=== PATIENT | female | born 1975 | race Caucasian/White ===

== ENCOUNTER 2016-08-24 16:53 | Emergency (ER) | payer SELFPAY ==
--- NOTE | 2016-08-24 17:24 | ER Document Report ---
ED Medical Screen (RME) - General Chief Complaint: Abdominal Pain Stated Complaint: FLANK PAIN/URINARY ISSUE TRAVEL OUTSIDE OF THE [place] IN LAST 30 DAYS: No - HPI Notes: 08/24/16 17:23 Left lower abdominal pain flank pain ongoing for a week and a half recently got over gastroenteritis. Patient now is having pain after urinating. - Related Data Allergies/Adverse Reactions: amoxicillin [Amoxicillin] Allergy (Verified 08/24/16 17:05) Penicillins Allergy (Verified 08/24/16 17:05) Past Medical History Renal/ Medical History: Denies: Hx Peritoneal Dialysis Review of Systems - Review of Systems Gastrointestinal: Abdominal pain Genitourinary: Dysuria Physical Exam - Vital signs Vitals: Temp Pulse Resp BP Pulse Ox 98.4 F 103 H 18 151/70 H 99 08/24/16 17:06 08/24/16 17:06 08/24/16 17:06 08/24/16 17:06 08/24/16 17:06 - Respiratory Respiratory status: No respiratory distress Chest status: Nontender Breath sounds: Normal Course - Re-evaluation Re-evalutation: 08/24/16 17:24 I have greeted and performed a rapid initial assessment of this patient. A comprehensive ED assessment and evaluation of the patient, analysis of test results and completion of the medical decision making process will be conducted by additional ED providers. - Vital Signs Vital signs: Temp Pulse Resp BP Pulse Ox 98.4 F 103 H 18 151/70 H 99 08/24/16 17:06 08/24/16 17:06 08/24/16 17:06 08/24/16 17:06 08/24/16 17:06
[2016-08-24 17:38] LABS: ABSOLUTE BASOPHILS # (AUTO) 0.1 10^3/uL (0.0-0.2); ABSOLUTE EOSINOPHILS # (AUTO) 0.3 10^3/uL (0.0-0.6); ABSOLUTE LYMPHOCYTES (AUTO) 3.1 10^3/uL (0.5-4.7); ABSOLUTE MONOCYTES (AUTO) 0.8 10^3/uL (0.1-1.4); ABSOLUTE NEUT (AUTO) 6.1 10^3/uL (1.7-8.2); BASOPHILS % (AUTO) 0.7 % (0-2); EOSINOPHILS % (AUTO) 3.1 % (0-6); HEMATOCRIT 34.6 % (36.0-47.0); HEMOGLOBIN 11.6 g/dL (12.0-15.5); HGB HCT DIFFERENCE 0.2; LYMPHOCYTES % (AUTO) 29.8 % (13-45); MEAN CORPUSCULAR HEMOGLOBIN 26.2 pg (27.0-33.4); MEAN CORPUSCULAR HGB CONC 33.5 g/dL (32.0-36.0); MEAN CORPUSCULAR VOLUME 78 fl (80-97); MONOCYTES % (AUTO) 7.3 % (3-13); RED BLOOD COUNT 4.42 10^6/uL (3.72-5.28); RED CELL DISTRIBUTION WIDTH 13.8 % (11.5-14.0); SEGMENTED NEUTROPHILS % (AUTO) 59.1 % (42-78); WHITE BLOOD COUNT 10.3 10^3/uL (4.0-10.5)
[2016-08-24 17:47] LABS: APPEARANCE,URINE CLEAR; BILIRUBIN,URINE NEGATIVE (NEGATIVE); GLUCOSE, URINE NEGATIVE (NEGATIVE); KETONES,URINE NEGATIVE (NEGATIVE); LEUKOCYTE ESTERASE,URINE NEGATIVE (NEGATIVE); NITRITE,URINE NEGATIVE (NEGATIVE); PROTEIN,URINE NEGATIVE (NEGATIVE); URINE SPECIFIC GRAVITY 1.016; UROBILINOGEN,URINE NEGATIVE mg/dL (<2.0)
[2016-08-24 17:57] LABS: ALANINE AMINOTRANSFERASE 27 U/L (9-52); ALKALINE PHOSPHATASE 65 U/L (38-126); ANION GAP 12 (5-19); ASPARTATE AMINO TRANSFERASE 18 U/L (14-36); BILIRUBIN,DIRECT 0.2 mg/dL (0.0-0.4); BILIRUBIN,TOTAL 0.3 mg/dL (0.2-1.3); BLOOD UREA NITROGEN 15 mg/dL (7-20); CALCIUM 9.8 mg/dL (8.4-10.2); CARBON DIOXIDE 25 mmol/L (22-30); CHLORIDE 104 mmol/L (98-107); CREATININE RESULT 0.59 mg/dL (0.52-1.25); GLUCOSE 111 mg/dL (75-110); LIPASE 58.9 U/L (23-300); POTASSIUM 4.1 mmol/L (3.6-5.0); SODIUM 140.9 mmol/L (137-145); TOTAL PROTEIN 7.2 g/dL (6.3-8.2)
--- NOTE | 2016-08-24 18:44 | ER Document Report ---
ED GI/ - General Mode of Arrival: Ambulatory Information source: Patient TRAVEL OUTSIDE OF THE [place] IN LAST 30 DAYS: No - HPI Patient complains to provider of: Abdominal pain, Flank pain Timing/Duration: Intermittent, Persistent Quality of pain: Cramping, Sharp Severity at maximum: Severe Severity in ED: Mild Pain Level: 2 Location: LLQ, Left flank, Pelvis Vaginal bleeding (Compared to normal period): Spotting LMP: 08/07/16 Sexual history: Active. denies: New partner, STD exposure Similar symptoms previously: No Recently seen / treated by doctor: No <RAMESH ZELAYA - Last Filed: 08/24/16 19:23> <ROBYN JUAREZ - Last Filed: 08/24/16 20:22> - General Chief Complaint: Abdominal Pain Stated Complaint: FLANK PAIN/URINARY PROBLEM Notes: 41 y/o F presents to ED c/o intermittently persistent left flank/LLQ pain for approximately the last week. Describes pain as sharp contraction-like and worse after urination. Reports first noted pain last week but worsened today. Reports hx of kidney stones on the right side but states pain feels different. States was diagnosed with gastroenteritis 2 weeks ago after several days of n/v/d but reports those symptoms resolved before onset of current symptoms. Reports noted what appeared to be vaginal spotting this morning. States LMP was 08/07/16 and is usually very regular. Denies fever, n/v, vaginal discharge, or blood in stool. (RAMESH ZELAYA) - Related Data Allergies/Adverse Reactions: amoxicillin [Amoxicillin] Allergy (Verified 08/24/16 17:05) Penicillins Allergy (Verified 08/24/16 17:05) Past Medical History - General Information source: Patient - Social History Smoking Status: Never Smoker Chew tobacco use (# tins/day): No Frequency of alcohol use: None Drug Abuse: None Lives with: Family Family History: Reviewed & Not Pertinent Patient has suicidal ideation: No Patient has homicidal ideation: No - Past Medical History Cardiac Medical History: Reports: Hx Hypertension Renal/ Medical History: Reports: Hx Kidney Stones. Denies: Hx Peritoneal Dialysis Surgical Hx: Negative - Immunizations Hx Diphtheria, Pertussis, Tetanus Vaccination: Yes <RAMESH ZELAYA - Last Filed: 08/24/16 19:23> Review of Systems - Review of Systems Constitutional: No symptoms reported EENT: No symptoms reported Cardiovascular: No symptoms reported Respiratory: No symptoms reported Gastrointestinal: See HPI Genitourinary: See HPI Female Genitourinary: See HPI Musculoskeletal: No symptoms reported Skin: No symptoms reported Hematologic/Lymphatic: No symptoms reported Neurological/Psychological: No symptoms reported -: Yes All other systems reviewed and negative <RAMESH ZELAYA - Last Filed: 08/24/16 19:23> Physical Exam - General General appearance: Appears well, Alert In distress: None - HEENT Head: Normocephalic, Atraumatic Eyes: Normal Pupils: PERRL - Respiratory Respiratory status: No respiratory distress Chest status: Nontender Breath sounds: Normal Chest palpation: Normal - Cardiovascular Rhythm: Regular Heart sounds: Normal auscultation Murmur: No Pulses: Normal: Radial, Posterior tibial, Dorsalis pedis Normal capillary refill: Yes - Abdominal Inspection: Normal Distension: No distension Bowel sounds: Normal Tenderness: Tender - mild tenderness with palpation to llq abd/left upper pelvis. No: Nontender, McBurney's point, Salgado's sign, Guarding, Rebound, Other Organomegaly: No organomegaly - Genitourinary External exam: Normal. No: Lesions Speculum exam: Cervix closed. No: Vaginal discharge Vaginal bleeding: Mild - small amount dark blood Bimanuel exam: Adnexal tenderness - left. No: Cervical motion tender - Back Back: Normal, Nontender - Extremities General upper extremity: Normal inspection, Nontender, Normal color, Normal ROM , Normal strength, Normal temperature. No: Edema General lower extremity: Normal inspection, Nontender, Normal color, Normal ROM , Normal strength, Normal temperature, Normal weight bearing. No: Edema - Neurological Neuro grossly intact: Yes Cognition: Normal Orientation: AAOx4 Alexei Coma Scale Eye Opening: Spontaneous [place] Coma Scale Verbal: Oriented [place] Coma Scale Motor: Obeys Commands Alexei Coma Scale Total: 15 Speech: Normal Motor strength normal: LUE, RUE, LLE, RLE Sensory: Normal - Skin Skin Temperature: Warm Skin Moisture: Dry Skin Color: Normal <RAMESH ZELAYA - Last Filed: 08/24/16 19:23> Course - Laboratory Result Diagrams: 08/24/16 17:00 08/24/16 17:00 - Transfer of Care Care transferred to following provider: Yvonne Juarez NP <RAMESH ZELAYA - Last Filed: 08/24/16 19:23> - Laboratory Result Diagrams: 08/24/16 17:00 08/24/16 17:00 - Diagnostic Test Radiology reviewed: Image reviewed, Reports reviewed - REASON FOR STUDY: L lower abd/pelvic pain, dysuria COMPARISON: 11/28/2014 TECHNIQUE: CT scan of the abdomen and pelvis performed without intravenous or oral contrast. Images reviewed with lung, soft tissue, and bone windows. Reconstructed coronal and sagittal MPR images reviewed. All images stored on PACS. All CT scanners at this facility use dose modulation, iterative reconstruction, and/or weight based dosing when appropriate to reduce radiation dose to as low as reasonably achievable (ALARA). [facility]: Dose Right [facility]: CareDose [facility]: Dose Right [facility]: Teradose 4D [facility]: ChemoCentryx RADIATION DOSE: 17.64mGy. LIMITATIONS: Artifact from spinal fusion. FINDINGS: LOWER CHEST: No significant findings. No nodules or infiltrates. NON-CONTRASTED LIVER, SPLEEN, ADRENALS: Evaluation limited by lack of IV contrast. No identified significant masses. PANCREAS: No masses. No peripancreatic inflammatory changes. GALLBLADDER: No identified stones by CT criteria. No inflammatory changes to suggest cholecystitis. RIGHT KIDNEY AND URETER: No solid masses. No significant calcification. No hydronephrosis or hydroureter. LEFT KIDNEY AND URETER: No solid masses. No significant calcification. No hydronephrosis or hydroureter. AORTA AND RETROPERITONEUM: No aneurysm. No retroperitoneal masses or adenopathy. BOWEL AND PERITONEAL CAVITY: Inflammation in the mesentery of the proximal sigmoid colon. Multiple diverticuli. No free air. No ascites. APPENDIX: Normal. PELVIS, BLADDER, AND ABDOMINAL WALL:No abnormal masses. No free fluid. Bladder normal. BONES: No acute findings. OTHER: No other significant finding. TECHNICAL DOCUMENTATION: JOB ID: [id number] Quality ID # [id number]: Final reports with documentation of one or more dose reduction techniques (e.g., Automated exposure control, adjustment of the mA and/or kV according to patient size, use of iterative reconstruction technique) 2010 [employer]- All Rights Reserved CT/CT LTD RENAL STONE PROTOCOL ON IMPRESSION: Diverticulitis proximal sigmoid colon <ROBYN JUAREZ - Last Filed: 08/24/16 20:22> - Re-evaluation Re-evalutation: 08/24/16 19:28 Report received from Ramesh Zelaya. Introduced self to patient. Patient updated on plan of care waiting on CT result. Patient declines pain medication 08/24/16 20:12 CT completed diverticulitis noted. Labs unremarkable. Patient updated on diverticulitis. Patient reports she recently started the Atkins diet and has been eating a lot of nuts. She was provided with written information on diverticulitis,diet food to void. Patient was also educated on Cipro and Flagyl. She declines pain medication. Patient was instructed on importance of follow-up with GI for colonoscopy. Patient does not have insurance she was instructed to follow up with [facility]. Patient was also instructed to return to the emergency department immediately for fever nausea vomiting increased pain. (ROBYN JUAREZ) - Vital Signs Vital signs: Temp Pulse Resp BP Pulse Ox 98.4 F 103 H 18 151/70 H 99 08/24/16 17:06 08/24/16 17:06 08/24/16 17:06 08/24/16 17:06 08/24/16 17:06 - Laboratory Laboratory results interpreted by me: 08/24/16 08/24/16 08/24/16 17:00 17:00 17:00 Hgb 11.6 L Hct 34.6 L MCV 78 L MCH 26.2 L Glucose 111 H Urine Blood MODERATE H Procedures - Pelvic Exam Pelvic exam Wet prep obtained: Yes Bimanual exam performed: Yes Witnessed by: Neetu Rey PCT <RAMESH ZELAYA - Last Filed: 08/24/16 19:23> Discharge <RAMESH ZELAYA - Last Filed: 08/24/16 19:23> <ROBYN JUAREZ - Last Filed: 08/24/16 20:22> - Discharge Clinical Impression: Elevated blood pressure reading Abdominal pain Qualifiers: Abdominal location: left lower quadrant Qualified Code(s): R10.32 - Left lower quadrant pain Diverticulitis Qualifiers: Diverticulitis site: large intestine Diverticulitis bleeding: without bleeding Diverticulitis complication: without perforation or abscess Qualified Code(s): K57.32 - Diverticulitis of large intestine without perforation or abscess without bleeding Condition: Stable Disposition: HOME, SELF-CARE Instructions: Abdominal Pain ([facility]), Ciprofloxacin ([facility]), Diverticulitis ([facility]), Low Residue Diet ([facility]), Metronidazole ([facility]), Oral Narcotic Medication ([facility]), Gastroenterology Additional Instructions: *You have been evaluated for abdominal pain, diverticulitis *Clear liquid diet, advance as tolerated to eat foods with fiber such as fruits , oats, beans, peas, leafy vegetables *Avoid foods with seeds, nuts popcorn *Take medication as prescribed *Follow up with a primary care provider within one week *Follow up with gastroenterology for colonoscopy *Return to ED for worsening condition, changes, needs *Return to ED if not better in 24 hours Monitor your blood pressure. Your blood pressure was elevated today. This may be because you were anxious, in pain or because you need medication. It is important to follow up with your primary care provider for full evaluation. Prescriptions: Ciprofloxacin HCl [Cipro 500 mg Tablet] 500 mg PO BID #20 tablet Metronidazole [Flagyl 500 mg Tablet] 500 mg PO TID #21 tablet Forms: Elevated Blood Pressure Referrals: LUCINDA MEANS FNP-C [Primary Care Provider] - Follow up in 3-5 days
[2016-08-24] MEDS ORDERED: CIPROFLOXACIN HCL 500 MG TABLET PO ONE (20:12)
[2016-08-24] MEDS ORDERED: METRONIDAZOLE 500 MG TABLET PO ONE (20:12)
[2016-08-24 20:38] VITALS: BP 126/66
[2016-08-24 21:05] LABS: CHLAM PCR NOT DETECTED (NOT DETECT)
== END 2016-08-24 20:37 | disposition home or self-care (01) ==
LOC: ER 16:53
DX: K57.32 Diverticulitis of large intestine without perforation or abscess without bleeding (principal); R10.32 Left lower quadrant pain; I10 Essential (primary) hypertension; R10.2 Pelvic and perineal pain; Z87.442 Personal history of urinary calculi; Z87.19 Personal history of other diseases of the digestive system; Z88.0 Allergy status to penicillin
CPT/HCPCS: 36415; 76380; 80053; 81001; 81025; 83690; 85025; 87210; 87491; 87591; 99284